=== PATIENT | male | born 1975 | race Caucasian/White ===

== ENCOUNTER 2024-02-15 20:54 | Emergency (ER) | payer BC, SELFPAY ==
[2024-02-15 20:59] VITALS: BP 168/96
[2024-02-15 21:57] LABS: % Basophils 1.4 % (0-2); % Eosinophils 3.2 % (0-6); % Immature Granulocytes 0.2 % (0-0.5); % Lymphocytes 37.5 % (20.5-51.1); % Monocytes 7.1 % (1.7-9.3); % Neutrophils 50.6 % (42.2-75.2); Absolute Basophils 0.1 10^3/uL (0-0.2); Absolute Eosinophils 0.3 10^3/uL (0-0.7); Absolute Lymphocytes 3.4 10^3/uL (1.2-3.4); Absolute Monocytes 0.6 10^3/uL (0.1-0.6); Absolute Neutrophils 4.5 10^3/uL (1.4-6.5); Hematocrit 43.4 % (39.0-52.0); Mean Corp Hgb Conc. 34.6 g/dL (33.0-37.0); Mean Corpuscular Hgb 27.3 pg (27.0-31.0); Mean Corpuscular Volume 78.9 fL (80.0-94.0); Mean Platelet Volume 9.9 fL (7.4-10.4); Nucleated Red Blood Cells % 0 % (-); Platelet Count 215 10^3/uL (130-400); Red Cell Dist. Width 12.4 % (11.5-14.5)
[2024-02-15 22:17] LABS: ALT (SGPT) 27 U/L (0-50); AST (SGOT) 27 U/L (17-59); Albumin 4.9 g/dl (3.5-5.0); Alkaline Phosphatase 53 U/L (38-126); Blood Urea Nitrogen 20 mg/dl (9-20); Calcium 11.3 mg/dl (8.4-10.2); Carbon Dioxide 30 mmol/L (22-30); Chloride 101 mmol/L (98-107); Glucose 94 mg/dl (70-99); Lipase 118 U/L (23-300); Potassium 4.3 mmol/L (3.5-5.1); Sodium 141 mmol/L (135-145); Total Bilirubin 0.8 mg/dl (0.2-1.3); Total Protein 7.8 g/dl (6.3-8.2); eGFR > 60.00
[2024-02-15 22:38] VITALS: BMI 33.9
--- NOTE | 2024-02-15 22:54 | ED.GENMED ---
History of Present Illness
General
Chief Complaint: Abdominal Pain
Source: patient
Exam Limitations: none
Time Seen by Provider: 02/15/24 22:38
Nursing documentation reviewed up to this point in time: agreed with
History of Present Illness
History of Present Illness:
Patient to ED with complaint of diffuse abdominal pain. Pain started yesterday, continues to worsen. Denies fever/chills. +nausea, no vomiting. +Diarrhea. Brought self to ED for eval.
Past History
Past History
ED Past Medical History: None
ED Past Surgical History: Other (Inguinal hernia repair as infant.)
Social History
Tobacco: Non-smoker
Alcohol: Occasional
Personal:
Living: with family
Employment: Employed (Teacher)
Family History
Family History: Other (Noncontributory)
Review of Systems
Review of Systems
Allergies reviewed?: Yes
All Other Systems: ROS reviewed and negative except as documented in HPI and ROS
Constitutional: Reports no symptoms
EENT: Reports no symptoms
Respiratory: Reports no symptoms
Cardiac: Reports no symptoms
ABD/GI: Reports abdominal pain, nausea and diarrhea
: Reports no symptoms
Musculoskeletal: Reports no symptoms
Skin: Reports no symptoms
Neurological: Reports no symptoms
Psychiatric: Reports no symptoms
Phy Exam
General Physical Exam
General Presentation: well appearing and mild distress
General age: appears stated age
General Skin: warm and dry
General Habitus: normal
General Mental: alert
Gastrointestinal Exam
Gastrointestinal Exam: normal bowel sounds, soft, no organomegaly, non distended and no cva tenderness
Musculoskeletal Exam
Musculoskeletal Exam: full ROM
Skin Exam
Skin Exam: normal color, warm/dry and no rash
Psychiatric Exam
Psychiatric Exam: normal mood/affect
Course
Orders/Labs/Results
Orders:
Orders
02/15/24 21:37
IV Insert/Care/Rem.- Treatment PRN
02/15/24 21:41
Complete Blood Count/With Diff Urgent
Comprehensive Metabolic Panel Urgent
Lipase Urgent
02/15/24 22:56
Iohexol [Omnipaque] See Protocol PO NOW STA
02/15/24 23:12
Urinalysis Reflex To Culture Urgent
Date Specimen was Collected: 02/15/24
Time Specimen was Collected: 23:04
02/16/24 01:00
CT Abd/pel W Iv And Oral Contr Urgent
Reason For Exam: diffuse abd. pain
Abnormal Lab Results
02/15/24
21:41
MCV 78.9 L fL
(80.0-94.0)
Calcium 11.3 H mg/dl
(8.4-10.2)
02/15/24 21:41
02/15/24 21:41
Vital Signs
Initial and Last Documented VS:
Initial Vital Signs
Temp Pulse Resp BP Pulse Ox
97.9 F 52 16 168/96 99
02/15/24 20:59 02/15/24 20:59 02/15/24 20:59 02/15/24 20:59 02/15/24 20:59
Last Documented Vital Signs
Temp Pulse Resp BP Pulse Ox
97.9 F 51 15 128/86 95
02/15/24 20:59 02/16/24 02:00 02/16/24 02:00 02/16/24 02:00 02/16/24 02:00
MDM/Problems Addressed
Differential Diagnosis Includes:
Patient to ED with complaint of diffuse abdominal pain. reports nausea and diarrhea, no vomiting. Afebrile. labs reviewed, no concerning findings. Ct reviewed - no acute disease processess, Discussed results with patient, He will be
discharged home, close follow up with PCP, Given instructions on s/s to return to ED and he is agreeable to plan. Differential to include but not limited to obstruction, diveticulitis, cholecystitis,pancreatitis, enteritis
*Radiology
Radiology exam reviewed: radiology read reviewed
*Pulse Oximetry
Patient hypoxic: no
*Critical Care Note
Total Time (30-74mins, 75-104mins- exclusive of procedures): Not Applicable
ED Attending Note
-
Portions of this chart may have been created with voice recognition software.� Occasional wrong word or��sound alike� substitutions may have occurred due to the inherent limitations of voice recognition software.
Discharge Plan
Departure
Prescriptions:
No Action
colestipol 1 gram Tablet
1 g PO ONCE
Referrals:
Mekhi Levin, DO [Family Provider] -
Interventions
Interventions:
*Risk Screen - Suicide Last Done: 02/15/24 20:59
*General Assessment Last Done: 02/15/24 20:59
*Neglect/Abuse Screening Last Done: 02/15/24 20:59
ED- Fall Risk Assessment Last Done: 02/16/24 00:42
*ED COVID-19 Vaccine History Last Done: 02/15/24 22:25
AX-Zrwnny-Kacwigfluy Assessment Last Done: 02/16/24 00:42
Discharge Date and Time
Print Language: TELUGU
[2024-02-15] MEDS: OMNIPAQUE 50 ML PO (23:06)
[2024-02-15 23:14] VITALS: BP 141/87
[2024-02-15 23:21] LABS: Urine Albumin Negative (Neg - Trace); Urine Bilirubin Negative (Negative); Urine Character Clear (Clear); Urine Color Yellow; Urine Glucose Negative (Negative); Urine Ketone Negative (Negative); Urine Leukocyte Negative (Negative); Urine Nitrite Negative (Negative); Urine Occult Blood Negative (Negative); Urine Urobilinogen Negative (Neg - 1+)
[2024-02-16] VITALS: BP 128/91
[2024-02-16 01:09] VITALS: BP 141/91
[2024-02-16 01:41] VITALS: BP 133/86
[2024-02-16 02:00] VITALS: BP 128/86
== END 2024-02-17 15:14 | disposition home or self-care (01) ==
LOC: EMR 20:54
PROVIDERS: Nurse Practitioner; Student in an Organized Health Care Education/Training Program; EMERGENCY PHYSICIAN Emergency Medicine; FAMILY PHYSICIAN Family Medicine
DX: R10.84 Generalized abdominal pain (principal)
CPT/HCPCS: 99284; 74177; 80053; 81003; 83690; 85025; Q9967